=== PATIENT | female | born 1940 | race Caucasian/White ===

== ENCOUNTER → 2023-07-26 | Outpatient (CLI) | payer MEDICARE, OTHER, SELFPAY ==
[2023-07-26 15:44] LABS: Absolute Lymphocyte Count 1.09 X10^3/uL (0.83-4.51); Absolute Neutrophil Count 4.1 X10^3/uL (2.0-7.7); Basophil# 0.05 X10^3/uL; Basophil% 0.9 % (0-1); Eosinophil# 0.08 X10^3/uL; Eosinophils% 1.4 % (0-5); Hematocrit 43.3 % (37-47); Hemoglobin 13.9 g/dL (12.0-15.0); Lymphocyte # 1.09 X10^3/ul (0.83-4.51); Lymphocyte % 18.9 % (19-41); Mean Corp Hgb Conc 32.1 g/dL (32-36); Mean Corpuscular Hgb 29.1 pg (27.0-32.0); Mean Corpuscular Volume 90.6 fL (81-99); Mean Platelet Vol. 9.1 fl (6.2-12.0); Monocyte# 0.47 X10^3/uL; Monocyte% 8.2 % (0-10); NRBC Flagged by Analyzer 0 % (0-5); Neutrophil # 4.05 X10^3/uL (2.7-7.7); Neutrophil % 70.3 % (47-70); Platelet Count 381 K/mm3 (150-450); RBC Distribution Width CV 13.2 % (11.6-14.6); RBC Distribution Width SD 44.4 fl (35.1-43.9); Red Blood Count 4.78 M/mm3 (4.2-5.4); White Blood Count 5.8 K/mm3 (4.4-11.0)
[2023-07-26 16:33] LABS: AST(SGOT) 29 U/L (15-37); Alanine Aminotransfer ALT/SGPT 35 U/L (13-56); Albumin, Serum 3.8 g/dL (3.2-5.0); Alkaline Phosphatase 63 U/L (45-117); Anion Gap 8 (5-15); BUN 17 mg/dL (7-18); BUN/Creat Ratio 20.6 RATIO (10-20); Chloride 104 mmol/L (98-107); Creatinine, Serum 0.82 mg/dL (0.55-1.02); EST Glomerular Filtration Rate 71 mL/min (>60); Est Glom Filt Rate - Afr Amer 86 mL/min (>60); Glucose 115 mg/dL (74-106); Potassium 3.6 mmol/L (3.5-5.1); Protein, Total 7.8 g/dL (6.4-8.2); Sodium Level 139 mmol/L (136-145); Thyroid Stim Hormone (TSH) 4.69 uIU/mL (0.358-3.74)
[2023-07-26 16:46] LABS: Hepatitis C Antibody Non-Reactive (Nonreactive); Vitamin D,25 Hydroxy 79.1 ng/mL
--- OUTSIDE RECORDS SUMMARY | 2023-07-26 21:39 | XMS RPT_ITS | CCD ---
Author Name Unknown Address [address] [place] [address] Organization [facility] Care Team Providers Care Airport Planner Name Role Phone AMY CUEVAS, DR GENA Chacon Attending Unavailabl e GENA REYES Attending Unavailable GENA REYES Admitting Unavailable GENA REYES Primary Care Unavailable GENA REYES Consulting Unavailable PROVIDER, UNKNOWN Consulting Unavailable PROVIDER, UNKNOWN Consulting Unavailable PROVIDER, UNKNOWN Consulting Unavailable GENA REYES MD Unavailable [phone] RUBI GEORGE MD Unavailable [phone] JOHANA GEORGE MD Unavailable Kim Gandara Unavailable Unavailable JOSE GUERIN Unavailable Unavailable Susannah Borden Unavailable Unavailable GAYLA LARSEN, JEIMY Unavailable Unavailable Filipe ALAN MD Unavailable [phone] LUIS A GEORGE Unavailable Unavailable Concha George Unavailable Unavailable Teri GEORGE MD Unavailable DIXIE KRAMER Unavailable Unavailable Lisa Nunez Unavailable Unavailable Carla Shaw Unavailable Unavailable Marcelo LARSEN, Anastasia Unavailable UnavailLEXY Kumar Unavailable Unavailable Natalie Parker RN Unavailable Unavailable Giana Bradford Unavailable Unavailable Unavailable Unavailable Allergies Allergy Classification Reported Allergen(s) Allergy Type Date of Onset Reaction(s) Facility (1 source) Sulfonamides (Antibiotic) 03-09-2023 [facility]; [facility] Medications Current Medications Medication Drug Class(es) Dates Sig (Normalized) Sig (Original) aspirin 81 mg delayed release oral tablet (1 source) Platelet Aggregation Inhibitor, Nonsteroidal Anti-inflammatory Drug take 1 tablet by mouth once daily ASPIRIN EC, 81MG (Oral Tablet Delayed Release) ; 1 daily (81 MG) ergocalciferol 1.25 mg oral capsule (1 source) Provitamin D2 Compound Start: 03-09-2023 ergocalciferol (vitamin D2) 1,250 mcg (50,000 unit) capsule ; 1 (one) Capsule Capsule every other week for 90 days Quantity: 6 {Capsule} Refills: 3 Ordered: 09-Mar-2023 MD GENA REYES Start: 09-Mar-2023 hydroCHLOROthiazide 25 mg / losartan potassium 100 mg oral tablet (1 source) Thiazide Diuretic, Angiotensin 2 Receptor Sammi Start: 03-09-2023 Hyzaar 100 mg-25 mg tablet ; 1 (one) Tablet Tablet daily for 90 days Quantity: 90 {Tablet} Refills: 3 Ordered: 09-Mar-2023 MD GENA REYES Start: 09-Mar-2023 simvastatin 20 mg oral tablet (1 source) HMG-CoA Reductase Inhibitor Start: 03-09-2023 simvastatin 20 mg tablet ; 1 Tablet daily for 90 days Quantity: 90 {Tablet} Refills: 3 Ordered: 09-Mar-2023 MD GENA REYES Start: 09-Mar-2023 Completed/Discontinued Medications Medication Drug Class(es) Dates Sig (Normalized) Sig (Original) azithromycin 250 mg oral tablet (2 sources) Macrolide Antimicrobial Start: 12-28-2021 End: 01-02-2022 Azithromycin 250 MG Oral Tablet ; 2 (two) Tablet on day one, then 1 tablet daily for 4 days for 5 days Quantity: 6 {Tablet} Refills: 0 Ordered: 13-Jan-2022 MD Teri GEORGE Start: 28-Dec-2021 End: 02-Jan-2022 Status: Inactive Problems Active Problems Problem Classification Problem Date Documented Date Episodic/Chronic Abdominal pain (1 source) Right lower quadrant pain; Translations: [Right lower quadrant pain] 06-13-2019 Episodic Acute bronchitis (2 sources) Acute bronchitis; Translations: [Acute bronchitis, unspecified] 12-28-2021 Episodic Administrative/social admission (18 sources) Patient encounter status; Translations: [Counseling, unspecified] 04-03-2017 Episodic Chronic obstructive pulmonary disease and bronchiectasis (2 sources) Bronchitis; Translations: [Bronchitis, not specified as acute or chronic] 07-01-2018 Episodic Disorders of lipid metabolism (20 sources) Mixed hyperlipidemia; Translations: [Mixed hyperlipidemia] Onset: 03-09-2023 Chronic Essential hypertension (20 sources) Essential (primary) hypertension; Translations: [Benign essential hypertension] Onset: 03-09-2023 Chronic Menopausal disorders (3 sources) Atrophic vaginitis; Translations: [Postmenopausal atrophic vaginitis] 10-05-2015 Chronic Nutritional deficiencies (11 sources) Vitamin D deficiency; Translations: [Vitamin D deficiency, unspecified] 03-09-2023 Chronic Osteoarthritis (13 sources) Osteoarthritis of left knee joint; Translations: [Unilateral primary osteoarthritis, left knee] 03-09-2023 Chronic Past or Other Problems Problem Classification Problem Date Documented Da te Episodic/Chronic Coronary atherosclerosis and other heart disease (7 sources) Coronary atherosclerosis and other heart disease 03-09-2023 Headache; including migraine (1 source) Headache; including migraine 04-03-2017 Unclassified (1 source) !Patient notification of lab results - Dr. Reyes. The test(s) that you had done were/was a CBC (checks for anemia and infection) and a CMP (kidneys, liver, nutrition, sugar). The results of your testing were normal . You should call our office if you have any questions. 03-12-2023 Unclassified (2 sources) [ADDITIONAL REASON] HYPERTENSION - There has been no associated chest pain, dyspnea or edema. 03-09-2023 Unclassified (1 source) HYPERTENSION - There has been no associated chest pain, dyspnea or edema. Note for HYPERTENSION : usually 130-140s/70-80s at home. 08-25-2022 Unclassified (1 source) Cough - The cough has been occurring for 4 days. The cough is characterized as productive sputum (yellow in color). Note for Cough : 2 negative Covid tests 12-28-2021 Unclassified (2 sources) !Patient notification of lab results - Dr. Reyes. The test(s) that you had done were/was a CMP (kidneys, liver, nutrition, sugar), a lipid panel (cholesterol and triglycerides) and Vitamin D level. The results of your testing were to goal . You should call our office if you have any questions. 12-05-2021 Unclassified (1 source) HYPERTENSION - There has been no associated chest pain. Note for HYPERTENSION : Pt checks BP at home. 12-02-2021 Unclassified (1 source) HYPERTENSION - There has been no associated chest pain or edema. Note for HYPERTENSION : Pt checks BP at home. Systolic usually runs in the 130-140s. 06-10-2021 Unclassified (1 source) HYPERTENSION - Note for HYPERTENSION : Pt checks BP at home. Systolic usually runs in the 130s. 12-03-2020 Unclassified (1 source) HYPERTENSION - Note for HYPERTENSION : Pt checks BP at home occasionally. 06-04-2020 Unclassified (1 source) !Patient notification of lab results - Dr. Reyes. The test(s) that you had done were/was a CMP (kidneys, liver, nutrition, sugar) (Your calcium level is back to normal.). You should call our office if you have any questions. Please note that we have included copies of your results. 12-15-2019 Unclassified (1 source) !Patient notification of lab results - Dr. Reyes. The test(s) that you had done were/was a CMP (kidneys, liver, nutrition, sugar) and a lipid panel (cholesterol and triglycerides). Your tests showed the following abnormalities: mildly elevated calcium . (Overall your blood work looks good. Your calcium is just slightly elevated. This often is a normal finding, but it can also be an early indicator of various other issues. I recommend rechecking it in 1 month.) You should call our office if you have any questions. 11-17-2019 Unclassified (1 source) !Patient notification of lab results - Dr. Reyes. The test(s) that you had done were/was a CT scan (Your scan did not show anything that would be causing your lower abdominal pain. The radiologist suggested maybe looking at an ultrasound to evaluate for gallstones, however this does not seem to correlate with the location of your pain.). You should call our office if you have any questions. 06-23-2019 Unclassified (1 source) !Patient notification of lab results - Dr. Reyes. The test(s) that you had done were/was a CBC (checks for anemia and infection), a CMP (kidneys, liver, nutrition, sugar) and a lipid panel (cholesterol and triglycerides). The results of your testing were normal . You should call our office if you have any questions. Please note that we have included copies of your results. 06-14-2019 Unclassified (1 source) Preoperative evaluation - Date of procedure: . Note for Preoperative evaluation : 11/06 at [facility]. Having rt knee replaced. 11-05-2018 Unclassified (1 source) cough - The cough has been occurring for 3 days. The symptoms have been associated with runny nose, while the symptoms have not been associated with fever. 07-01-2018 Unclassified (1 source) !Patient notification of lab results - Reyes. The test(s) that you had done were/was a CMP (kidneys, liver, nutrition, sugar) and a lipid panel (cholesterol and triglycerides). The results of your testing were normal . You should call our office if you have any questions. 04-25-2018 Unclassified (1 source) Preoperative evaluation - Note for Preoperative evaluation : Left knee replacement October 29 at [facility]. 10-23-2017 Unclassified (1 source) Hand pain - The hand pain has been occurring for 4 days. The pain affects the right hand. The pain is located in the long finger. 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 Here for exam. 07-12-2017 Unclassified (1 source) !Patient notification of lab results - The test(s) that you had done were/was a CMP (kidneys, liver, nutrition, sugar), a lipid panel (cholesterol and triglycerides) and Vitamin D level. The results of your testing were normal (Your vitamin D has risen from 22 to 47. I recommend continuing your vitamin D supplementation twice per month.) . You should call our office if you have any questions. 04-06-2017 Unclassified (1 source) HYPERTENSION - There has been no associated chest pain or dyspnea. 09-19-2016 Unclassified (1 source) [ADDITIONAL REASON] Osteoarthritis - Symptoms are located in the left knee joint. Note for Osteoarthritis : Continues regular exercise on [employer] machine. Knows strengthening exercises but has not been doing regularly. Right knee painful at times as well - worsens with cold/rainy weather. 09-19-2016 Unclassified (1 source) !Patient notification of lab results - Reyes. The test(s) that you had done were/was a CMP (kidneys, liver, nutrition, sugar), a lipid panel (cholesterol and triglycerides) and Vitamin D level. The results of your testing were normal . You should call our office if you have any questions. 04-13-2016 Unclassified (1 source) [ADDITIONAL REASON] HYPERTENSION - There has been no associated chest pain or dyspnea. 04-11-2016 Unclassified (1 source) HYPERTENSION - There has been no associated chest pain, dyspnea or edema. 10-05-2015 Unclassified (1 source) Medication Evaluation - Note for Medicine treatment : Needs replacement for premarin cream. 07-05-2015 Unclassified (1 source) !Patient notification of lab results 1 - Reyes. The test(s) that you had done were/was an A1C (three month sugar average), a CMP (kidneys, liver, nutrition, sugar), a lipid panel (cholesterol and triglycerides) and a TSH (thyroid). The results of your testing were normal . You should call our office if you have any questions. Please note that we have included copies of your results. 04-09-2015 Results Test Name Value Interpretation Reference Range Facil ity Vital Signs Date Time Vital Sign Value Performing Clinician Wisam sanchez 03-09-2023 08:58-0400 Body height 157.48 cm Susannah Redd [facility] [facility] [employer] [facility] 03-09-2023 08:58-0400 Body mass index (BMI) [Ratio] 36.21 kg/m2 Susannahjesse Redd [facility] 03-09-2023 08:58-0400 Body surface area Derived from formula 1.9 m2 Susannahjesse Redd [facility] 03-09-2023 08:58-0400 Body weight 89.81 kg Susannah Redd [facility] [employer] [facility] 03-09-2023 08:58-0400 Diastolic blood pressure 79 mm[Hg] Susannahjesse Redd [facility] [employer] [facility] Encounters Encounter Date Encounter Type Care Provider Facility Start: 05-08-2023 End: 05-08-2023 ambulatory GENA REYES [facility] Start: 03-16-2023 End: 03-16-2023 Procedure Order GENA RYEES MD Work Phone: [employer] Start: 03-12-2023 End: 03-12-2023 Nutrition therapy GENA REYES MD Work Phone: [employer] Start: 03-09-2023 End: 03-14-[address] GENA REYES MD Facility:A Start: 03-09-2023 End: 03-09-2023 Office outpatient visit 25 minutes GENA REYES MD Work Phone: [employer] [facility] Start: 08-25-2022 End: 08-25-2022 Office outpatient visit 25 minutes GENA REYES MD Work Phone: [employer] [facility] Start: 04-10-2022 End: 04-10-2022 Procedure Order GENA REYES MD Work Phone: [employer] Start: 03-02-2022 End: 03-02-2022 Medication Refill/Order GENA REYES MD Work Phone: [employer] [facility] Start: 12-28-2021 End: 12-28-2021 Office outpatient visit 15 minutes GENA REYES MD Work Phone: [employer] [facility] Start: 12-05-2021 End: 12-05-2021 Nutrition therapy GENA REYES MD Work Phone: [employer] Start: 12-02-2021 End: 12-02-2021 Office outpatient visit 25 minutes GENA REYES MD Work Phone: [employer] Start: 06-10-2021 End: 06-10-2021 Office outpatient visit 25 minutes GENA REYES MD Work Phone: [employer] Start: 02-08-2021 End: 02-08-2021 Procedure Order GENA REYES MD Work Phone: [employer] Start: 12-06-2020 End: 12-06-2020 Nutrition therapy GENA REYES MD Work Phone: [employer] Start: 12-03-2020 End: 12-03-2020 Office outpatient visit 25 minutes GENA REYES MD Work Phone: [employer] Start: 08-05-2020 End: 08-05-2020 Historical Summary GENA REYES MD Work Phone: [employer] Start: 06-04-2020 End: 06-04-2020 Office outpatient visit 25 minutes GENA REYES MD Work Phone: [employer] Start: 02-03-2020 End: 02-03-2020 Procedure Order GENA REYES MD Work Phone: [employer] Start: 12-15-2019 End: 12-15-2019 Nutrition therapy GENA REYES MD Work Phone: [employer] Start: 12-12-2019 End: 12-12-2019 Lab Only GENA REYES MD Work Phone: [employer] Start: 11-17-2019 End: 11-17-2019 Nutrition therapy GENA REYES MD Work Phone: [employer] Start: 11-14-2019 End: 11-14-2019 Addendum to visit GENA REYES MD Work Phone: [employer] Start: 11-14-2019 End: 11-14-2019 Office outpatient visit 25 minutes GENA REYES MD Work Phone: [employer]. Start: 06-23-2019 End: 06-23-2019 Results Review GENA REYES MD Work Phone: [employer] Start: 06-14-2019 End: 06-14-2019 Nutrition therapy GENA REYES MD Work Phone: [employer] Start: 06-13-2019 End: 06-13-2019 Office outpatient visit 25 minutes GENA REYES MD Work Phone: [employer] Start: 01-27-2019 End: 01-27-2019 Procedure Order GENA REYES MD Work Phone: [employer] Start: 11-05-2018 End: 11-05-2018 Office outpatient visit 15 minutes GENA REYES MD Work Phone: [employer] Start: 11-05-2018 End: 11-05-2018 Patient encounter status GENA REYES MD Work Phone: [employer]; [employer] Start: 07-01-2018 End: 07-01-2018 Office outpatient visit 15 minutes GENA REYES MD Work Phone: [employer] Start: 04-25-2018 End: 04-25-2018 Nutrition therapy GENA REYES MD Work Phone: [employer] Start: 04-23-2018 End: 04-23-2018 Medication Refill/Order GENA REYES MD Work Phone: [employer] Start: 04-23-2018 End: 04-23-2018 Office outpatient visit 25 minutes GENA REYES MD Work Phone: [employer] [facility] Start: 12-27-2017 End: 12-27-2017 Procedure Order GENA REYES MD Work Phone: [employer] [facility] [employer] Start: 11-26-2017 End: 11-26-2017 Historical Summary GENA REYES MD Work Phone: [employer] [facility] [employer] Start: 10-23-2017 End: 10-23-2017 Medication Refill/Order GENA REYES MD Work Phone: [employer]. Start: 10-23-2017 End: 10-23-2017 Office outpatient visit 15 minutes GENA REYES MD Work Phone: [employer] [facility] Start: 10-23-2017 End: 10-23-2017 Preprocedural examination done GENA REYES MD Work Phone: [employer]; [employer]. Start: 07-12-2017 End: 07-12-2017 Office outpatient visit 10 minutes GENA REYES MD Work Phone: [employer] [facility] Start: 04-06-2017 End: 04-06-2017 Nutrition therapy GENA REYES MD Work Phone: [employer] Start: 04-03-2017 End: 04-03-2017 Office outpatient visit 25 minutes GENA REYES MD Work Phone: [employer]. Start: 01-16-2017 End: 01-16-2017 Historical Summary GENA REYES MD Work Phone: [employer] Start: 12-08-2016 End: 12-08-2016 Procedure Order GENA REYES MD Work Phone: [employer] Start: 09-19-2016 End: 09-19-2016 Office outpatient visit 25 minutes GENA REYES MD Work Phone: [employer] Start: 04-25-2016 End: 04-25-2016 Historical Summary GENA REYES MD Work Phone: [employer] Start: 04-25-2016 End: 04-25-2016 Medication Refill/Order GENA REYES MD Work Phone: [employer] Start: 04-24-2016 End: 04-24-2016 Historical Summary GENA REYES MD Work Phone: [employer] Start: 04-13-2016 End: 04-13-2016 Nutrition therapy GENA REYES MD Work Phone: [employer] Start: 04-11-2016 End: 04-11-2016 Addendum to visit GENA REYES MD Work Phone: [employer] Start: 04-11-2016 End: 04-11-2016 Office outpatient visit 25 minutes GENA REYES MD Work Phone: [employer] Start: 11-23-2015 End: 11-23-2015 Procedure Order GENA REYES MD Work Phone: [employer] Start: 10-05-2015 End: 10-05-2015 Office outpatient visit 25 minutes GENA REYES MD Work Phone: [employer] Start: 07-05-2015 End: 07-05-2015 Office outpatient visit 15 minutes GENA REYES MD Work Phone: [employer] Start: 04-09-2015 End: 04-09-2015 Nutrition therapy GENA REYES MD Work Phone: [facility] [employer] [facility]. Start: 04-09-2015 End: 04-09-2015 Historical Summary GENA REYES MD Work Phone: [facility] [employer] [facility] Start: 04-06-2015 End: 04-06-2015 Office outpatient new 30 minutes GENA REYES MD Work Phone: [facility] [employer] Start: 04-05-2015 End: 04-05-2015 Historical Summary GENA REYES MD Work Phone: [facility] [employer] Start: 03-01-2015 End: 03-01-2015 Historical Summary GENA REYES MD Work Phone: [facility] [employer] [facility] Procedures Date Procedure Procedure Detail Performing Clinician Start: 05-08-2023 End: 05-08-2023 Screening mammography GENA REYES MD Work Phone: Plan of Treatment Date Care Activity Detail Author Start: 09-07-2023 [facility] visit, [facility]; ESTABLISHED PATIENT ROUTINE VISIT - [facility] [employer] [facility] Start: 07-Sep-2023 10:30 MD GENA REYES Appointment Request [facility] [employer]. Start: 03-16-2023 Screening digital br east tomosynthesis bi SCREENING MAMMOGRAPHY WITH TOMOSYNTHESIS (77338) (3D) Bilateral Start: 16-Mar-2023 [facility] [employer].; [facility] Start: 04-10-2022 Screening digital br east tomosynthesis bi SCREENING MAMMOGRAPHY WITH TOMOSYNTHESIS (00422) (3D) Bilateral Start: 10-Apr-2022 [facility] [employer] [facility], Inc[facility] Start: 06-10-2021 Patient Education [facility]; [facility]. Start: 02-08-2021 Screening digital br east tomosynthesis bi SCREENING MAMMOGRAPHY WITH TOMOSYNTHESIS (3 D) (65186) Start: 08-Feb-2021 Intent [facility] [employer] [facility].; [facility] Start: 12-03-2020 Patient Education [facility] Inc[facility] Start: 06-04-2020 Patient Education [facility] [employer] [facility].; [facility]. Start: 02-03-2020 Screening mammograph y bi 2-view breast inc cad MAMMOGRAM BREAST BILATERAL SCREENING DIGITAL ([id number]) Start: 03-Feb-2020 Intent [facility] [employer].; [facility]. Start: 11-14-2019 Patient Education [facility].; [facility], [employer]. Start: 06-13-2019 Ct abdomen & pelvis w/contrast material CT ABD & PELV W/CONTRAST (20362) - IV Contrast per Protocol Start: 13-Jun-2019 Intent [facility] [employer].; [facility] [employer] [facility], [employer]. Start: 06-13-2019 Patient Education [facility] [employer] [facility].; [facility] [employer] [facility], [employer]. Start: 01-27-2019 Screening mammograph y bi 2-view breast inc cad MAMMOGRAM BREAST BILATERAL SCREENING DIGITAL (43181) Start: 27-Jan-2019 Intent [facility] [employer].; [facility] [employer] [facility]. Start: 12-27-2017 Screening mammograph y bi 2-view breast inc cad MAMMOGRAM BREAST BILATERAL SCREENING DIGITAL ([id number]) Start: 27-Dec-2017 Intent [employer] [employer] [facility], [employer]. Start: 11-23-2015 Mammogram, screening MAMMOGRAM , SCREENING (02039) Start: 23-Nov-2015 Intent Comments: Per patient report: Clip in left breast s/p biopsy - negative [facility].; [facility] [employer]. Immunizations Immunization Date Immunization Notes Care Provider [facility] 06-17-2020 COVID-Pfizer (30 MCG/0.3 ML) GENA REYES MD Work Phone: [facility] 05-27-2020 COVID-Pfizer (30 MCG/0.3 ML) GENA REYES MD Work Phone: [facility]; [facility] 03-14-2018 influenza virus vaccine, unspecified formulation GENA REYES MD Work Phone: [facility]; [facility] Payers Date Payer Category Payer Medicare [id number] 2023 Unknown [id number] 1940 Unknown [id number] 1940 Unknown [id number] Unknown Social History Date Type Detail Facility Alcohol Use: Alcohol Use: ; No Alcohol [facility]; [facility] Living situation Living situation [facility]; [facility]. Marital status: Marital status: ; . [facility]; [facility] Tobacco use: Tobacco use: ; Never smoker. [facility].; [facility] Female [facility].; [facility] Work Phone: Never smoked tobacco [facility].; [facility] Work Phone: [facility] [employer] [facility].; [facility] Work Phone: Summary Purpose Family History Daughter (s) Status:Active Comments:Daughte r. 2. Arthritis (1 daughter) Father Status:Active Comments: pn eumonia age 65 Mother Status:Active Comments:Breast cancer. age 99 Sister (s) Status:Active Comments:Sister is Asia León Son (s) Status:Active Comments:Son. 1. history of DVT Advance Directives No Advanced Directives Records FoundNo Advanced Directives Records Found Additional Source Comments INFORMATION SOURCE (unrecogn ized section and content) DATE CREATED AUTHOR AUTHOR'S ORGANIZ ATION 05/09/2023 [facility] FOR RECORDS PERTAINING TO PATIENTS WHO ARE OR HAVE BEEN ENROLLED IN A CHEMICAL DEPENDENCY/SUBSTANCEABUSE PROGRAM, SOME INFORMATION MAY BE OMITTED. This clinical summary was aggregated from multiple sources. Caution should be exercised in using it in the provision of clinical care. This summary normalizes information from multiple sources, and as a consequence, information in this document may materially change the coding, format and clinical context of patient data. In addition, data may be omitted in some cases. CLINICAL DECISIONS SHOULD BE BASED ON THE PRIMARY CLINICAL RECORDS. [employer] provides no warranty or guarantee of the accuracy or completeness of information in this document.
== END | disposition home or self-care (01) ==
LOC: POLAB3 14:55
PROVIDERS: Visit Provider Family Medicine Geriatric Medicine
DX: Z13.89 Encounter for screening for other disorder (principal); I10 Essential (primary) hypertension; E55.9 Vitamin D deficiency, unspecified
CPT/HCPCS: 36415; 80053; 82306; 84443; 85025; 86803

== ENCOUNTER → 2024-02-07 | Outpatient (CLI) | payer MEDICARE, OTHER, SELFPAY ==
[2024-02-07 15:50] LABS: Absolute Lymphocyte Count 1.56 X10^3/uL (0.83-4.51); Absolute Neutrophil Count 4.2 X10^3/uL (2.0-7.7); Basophil# 0.07 X10^3/uL; Eosinophil# 0.22 X10^3/uL; Eosinophils% 3.3 % (0-5); Hematocrit 43.2 % (37-47); Hemoglobin 13.8 g/dL (12.0-15.0); Lymphocyte # 1.56 X10^3/ul (0.83-4.51); Lymphocyte % 23.3 % (19-41); Mean Corp Hgb Conc 31.9 g/dL (32-36); Mean Corpuscular Hgb 29.2 pg (27.0-32.0); Mean Corpuscular Volume 91.3 fL (81-99); Mean Platelet Vol. 8.9 fl (6.2-12.0); Monocyte# 0.62 X10^3/uL; Monocyte% 9.3 % (0-10); NRBC Flagged by Analyzer 0 % (0-5); Neutrophil # 4.21 X10^3/uL (2.7-7.7); Platelet Count 361 K/mm3 (150-450); RBC Distribution Width CV 13.2 % (11.6-14.6); RBC Distribution Width SD 44.7 fl (35.1-43.9); Red Blood Count 4.73 M/mm3 (4.2-5.4); White Blood Count 6.7 K/mm3 (4.4-11.0)
[2024-02-07 16:21] LABS: AST(SGOT) 29 U/L (15-37); Alanine Aminotransfer ALT/SGPT 30 U/L (13-56); Albumin, Serum 3.8 g/dL (3.2-5.0); Alkaline Phosphatase 80 U/L (45-117); Anion Gap 6 (5-15); BUN 18 mg/dL (7-18); BUN/Creat Ratio 19.3 RATIO (10-20); Calcium,Total 9.7 mg/dL (8.5-10.1); Chloride 105 mmol/L (98-107); Creatinine, Serum 0.93 mg/dL (0.55-1.02); EST Glomerular Filtration Rate 61 mL/min (>60); Est Glom Filt Rate - Afr Amer 74 mL/min (>60); Glucose 120 mg/dL (74-106); Potassium 3.5 mmol/L (3.5-5.1); Protein, Total 7.8 g/dL (6.4-8.2); Sodium Level 139 mmol/L (136-145)
[2024-02-07 16:22] LABS: Vitamin D,25 Hydroxy 49.2 ng/mL
== END | disposition home or self-care (01) ==
LOC: POLAB3 15:31
PROVIDERS: PCP Family Medicine Geriatric Medicine; Visit Provider Family Medicine Geriatric Medicine
DX: I10 Essential (primary) hypertension (principal); E55.9 Vitamin D deficiency, unspecified
CPT/HCPCS: 36415; 80053; 82306; 85025